=== PATIENT | male | born 1945 | race Caucasian/White ===

== ENCOUNTER 2021-02-09 18:06 | Inpatient (IN) | payer MEDICARE, BC ==
[2021-02-09 18:50] LABS: #Eosinphils 0.1 10x3/uL (0.0-0.5); #Monocytes 0.9 10x3/uL (0.0-1.1); #Neutrophils 13.6 10x3/uL (1.5-8.4); %Basophils 0.3 % (0.0-2.0); %Eosinophils 0.3 % (0.0-6.0); %Lymphocytes 4.9 % (18.0-47.0); %Monocytes 5.8 % (0.0-10.0); %Neutrophils 88.1 % (40.0-75.0); Hemoglobin 14.2 g/dL (13.5-17.5); Mean Corpuscular HGB CONC 34.5 g/dL (32.0-36.0); Mean Corpuscular Hemoglobin 31.7 pg (27.0-33.0); Mean Corpuscular Volume 91.7 fl (81.2-95.1); Mean Platelet Volume 11.5 fl (7.4-10.4); Platelet Count 111 10x3/uL (150-450); RBC Distribution Width 13.2 % (11.5-14.5); Red Blood Cell (RBC) Count 4.48 10x6/uL (4.32-5.72); White Blood Cell (WBC) Count 15.4 10x3/uL (3.5-10.5)
[2021-02-09 19:07] LABS: ALT (SGPT) Less than 6 U/L (8-55); AST (SGOT) 8 U/L (5-34); Albumin 3.1 g/dL (3.4-4.8); Alkaline Phosphatase 65 U/L (40-110); Anion Gap 14 mmol/L (10-20); BUN (Urea Nitrogen) 21 mg/dL (8.4-25.7); Bilirubin, Total 1.7 mg/dL (0.2-1.2); Calc. Creatinine Clearance 0 mL/min (70-130); Carbon Dioxide 16 mmol/L (23-31); Chloride 110 mmol/L (98-107); Globulin 2.2 g/dL (2.4-3.5); Glucose 179 mg/dL (83-110); Magnesium 1.4 mg/dL (1.6-2.6); Potassium 3.6 mmol/L (3.5-5.1); Protein, Total 5.3 g/dL (5.8-8.1); Sodium 136 mmol/L (136-145)
[2021-02-09 19:16] LABS: CKMB 1.1 ng/mL (0-6.6)
[2021-02-09 19:22] LABS: Lipase Less than 4 U/L (8-78)
[2021-02-09] MEDS ORDERED: Magnesium 2 GM/50 ML BAG (IN WATER) ONE (19:22)
[2021-02-09 19:59] LABS: Bilirubin 1+ (Negative); Blood, Urine 250 (Negative); Clarity Cloudy (Clear); Glucose, Urine (Dipstick) Normal (Negative); Ketone, Urine 5 mg/dL (Negative); Leukocyte 500 (Negative); Nitrite Negative (Negative); Protein, Urine (Dipstick) 100 mg/dl (Neg-Trace); Specific Gravity, Urine 1.025 (1.002-1.036)
[2021-02-09 20:00] LABS: RBC/HPF 21-50 HPF (0-3); Squamous Epithelial 0-3 HPF (0-3); WBC/HPF 21-50 HPF (0-3)
[2021-02-09 20:01] LABS: Bacteria/HPF 2+ HPF (None Seen); Renal Epithelial 0-3 HPF (None Seen); Transitional Epithelial 0-3 HPF (None Seen)
[2021-02-09] MEDS ORDERED: cefTRIAXone\\ROCEPHIN 2 GM VIAL ONE (20:24)
[2021-02-09] MEDS ORDERED: HumaLOG 300 UNITS/3 ML VIAL SC PRN (20:38)
[2021-02-09] MEDS ORDERED: Dextrose 50% Abboject 50 ML SYRINGE SLOW IVP PRN (20:38)
[2021-02-09] MEDS ORDERED: Calcium Carbonate 500 MG ChewTAB PO PRN (20:38)
[2021-02-09] MEDS ORDERED: Dextrose 5% in Water 1,000 ML IV PRN (20:38)
[2021-02-09] MEDS ORDERED: Ondansetron PF 4 MG/2 ML Vial IVP PRN (20:38)
[2021-02-09] MEDS ORDERED: Senokot S 8.6-50 MG TAB PO PRN (20:38)
[2021-02-09] MEDS ORDERED: Lactated Ringer's 1,000 ML IV SCH (20:45)
[2021-02-09] MEDS ORDERED: CARBIDOPA PO SCH (21:00)
[2021-02-09] MEDS ORDERED: [UNRECOGNIZED DRUG - OTHER] PO SCH (21:00)
[2021-02-09] MEDS ORDERED: LEVODOPA PO SCH (21:00)
[2021-02-09 21:04] LABS: SARS-CoV-2 NAA Rapid Test Not Detected (NotDetected)
[2021-02-09] MEDS ORDERED: Meropenem 1 GM in Sodium Chloride 0.9% 100 ML IVPB SCH (22:45)
[2021-02-09] MEDS ORDERED: PIMAVANSERIN PO SCH (23:30)
[2021-02-10] MEDS ORDERED: Atorvastatin Calcium 10 MG TAB PO SCH (00:15)
[2021-02-10] MEDS: Propranolol HCl 20 MG TAB PO SCH ×3 (01:46→20:53)
[2021-02-10 02:42] VITALS: BMI 34.4
[2021-02-10] MEDS ORDERED: FLU VACC QS2021-22(65YR UP)/PF 240 MCG/0.7 ML SYRINGE IM ONE (03:15)
[2021-02-10 04:26] LABS: #Eosinphils 0.1 10x3/uL (0.0-0.5); #Monocytes 0.5 10x3/uL (0.0-1.1); #Neutrophils 13.4 10x3/uL (1.5-8.4); %Basophils 0.2 % (0.0-2.0); %Eosinophils 0.9 % (0.0-6.0); %Lymphocytes 3.9 % (18.0-47.0); %Neutrophils 90.9 % (40.0-75.0); Hemoglobin 13.4 g/dL (13.5-17.5); Mean Corpuscular HGB CONC 33.8 g/dL (32.0-36.0); Mean Corpuscular Hemoglobin 31.5 pg (27.0-33.0); Mean Corpuscular Volume 93.2 fl (81.2-95.1); Mean Platelet Volume 11.1 fl (7.4-10.4); Platelet Count 110 10x3/uL (150-450); RBC Distribution Width 13.2 % (11.5-14.5); Red Blood Cell (RBC) Count 4.25 10x6/uL (4.32-5.72); White Blood Cell (WBC) Count 14.8 10x3/uL (3.5-10.5)
[2021-02-10 05:00] LABS: CKMB 2.1 ng/mL (0-6.6)
[2021-02-10 05:10] LABS: Anion Gap 13 mmol/L (10-20); BUN (Urea Nitrogen) 23 mg/dL (8.4-25.7); Calc. Creatinine Clearance 50 mL/min (70-130); Calcium 8.9 mg/dL (7.8-10.44); Carbon Dioxide 23 mmol/L (23-31); Chloride 103 mmol/L (98-107); Glucose 150 mg/dL (83-110); Magnesium 2.1 mg/dL (1.6-2.6); Sodium 135 mmol/L (136-145)
[2021-02-10] MEDS: Enoxaparin Sodium 40 MG/0.4 ML SYRINGE SC SCH (08:09)
[2021-02-10] MEDS: rOPINIRole HCl 1 MG TAB PO SCH ×3 (08:10→20:54)
[2021-02-10] MEDS: Montelukast Sodium 10 mg Tablet PO SCH (08:11)
[2021-02-10] MEDS: Multivitamin W/ Minerals 1 TAB PO SCH (08:11)
[2021-02-10] MEDS: Tamsulosin HCl 0.4 MG CAP PO SCH (08:11)
[2021-02-10] MEDS: FLUoxetine HCl 10 MG CAP PO SCH (08:11)
[2021-02-10] MEDS: Clopidogrel Bisulfate 75 MG TAB PO SCH (08:12)
[2021-02-10] MEDS: PIMAVANSERIN PO SCH ×2 (08:12→20:00)
[2021-02-10] MEDS: Ventolin HFA Inhaler 60 PUFF INHALER INH SCH ×5 (08:15→19:15)
[2021-02-10 08:50] LABS: Hemoglobin A1c 5.7 % (4.0-6.0)
[2021-02-10] MEDS: Acetaminophen 325 MG TAB PO PRN (18:57)
[2021-02-10] MEDS: Atorvastatin Calcium 10 MG TAB PO SCH (20:54)
[2021-02-10] MEDS: Carbidopa/Levodopa 25-100 mg Tablet PO SCH (20:54)
[2021-02-11 05:32] LABS: Anion Gap 13 mmol/L (10-20); BUN (Urea Nitrogen) 25 mg/dL (8.4-25.7); Calc. Creatinine Clearance 50 mL/min (70-130); Calcium 8.8 mg/dL (7.8-10.44); Carbon Dioxide 21 mmol/L (23-31); Chloride 105 mmol/L (98-107); Glucose 141 mg/dL (83-110); Sodium 135 mmol/L (136-145)
[2021-02-11 06:48] LABS: Hemoglobin 12.7 g/dL (13.5-17.5); Mean Corpuscular HGB CONC 33.4 g/dL (32.0-36.0); Mean Corpuscular Hemoglobin 31.4 pg (27.0-33.0); Mean Corpuscular Volume 93.8 fl (81.2-95.1); Mean Platelet Volume 11.9 fl (7.4-10.4); Platelet Count 95 10x3/uL (150-450); RBC Distribution Width 13.2 % (11.5-14.5); Red Blood Cell (RBC) Count 4.05 10x6/uL (4.32-5.72)
[2021-02-11] MEDS: Ventolin HFA Inhaler 60 PUFF INHALER INH SCH ×4 (07:30→19:50)
[2021-02-11] MEDS: Sodium Chloride 0.9% 1,000 ML IV SCH (09:35)
[2021-02-11] MEDS: FLUoxetine HCl 10 MG CAP PO SCH (09:43)
[2021-02-11] MEDS: rOPINIRole HCl 1 MG TAB PO SCH ×3 (09:43→21:06)
[2021-02-11] MEDS: Multivitamin W/ Minerals 1 TAB PO SCH (09:44)
[2021-02-11] MEDS: Propranolol HCl 20 MG TAB PO SCH ×2 (09:44→22:29)
[2021-02-11] MEDS: Clopidogrel Bisulfate 75 MG TAB PO SCH (09:44)
[2021-02-11] MEDS: Acetaminophen 325 MG TAB PO PRN (09:44)
[2021-02-11] MEDS: PIMAVANSERIN PO SCH ×2 (09:45→21:04)
[2021-02-11] MEDS: Enoxaparin Sodium 40 MG/0.4 ML SYRINGE SC SCH (09:45)
[2021-02-11] MEDS: Montelukast Sodium 10 mg Tablet PO SCH (09:45)
[2021-02-11] MEDS: Tamsulosin HCl 0.4 MG CAP PO SCH (09:45)
[2021-02-11] MEDS: Carbidopa/Levodopa 25-100 mg Tablet PO SCH ×3 (10:30→21:07)
[2021-02-11] MEDS: LEVODOPA PO SCH ×4 (10:53→10:55)
[2021-02-11] MEDS: CARBIDOPA PO SCH ×4 (10:53→10:55)
[2021-02-11] MEDS: [UNRECOGNIZED DRUG - OTHER] PO SCH ×2 (10:53→10:54)
[2021-02-11] MEDS: [UNRECOGNIZED DRUG - OTHER] PO SCH ×2 (10:54→10:55)
[2021-02-11] MEDS: Atorvastatin Calcium 10 MG TAB PO SCH (21:06)
[2021-02-12] MEDS: Sodium Chloride 0.9% 1,000 ML IV SCH (00:37)
[2021-02-12 06:27] LABS: Anion Gap 12 mmol/L (10-20); BUN (Urea Nitrogen) 21 mg/dL (8.4-25.7); Calc. Creatinine Clearance 58 mL/min (70-130); Calcium 8.4 mg/dL (7.8-10.44); Carbon Dioxide 23 mmol/L (23-31); Chloride 107 mmol/L (98-107); Glucose 138 mg/dL (83-110); Sodium 138 mmol/L (136-145)
[2021-02-12] MEDS: Ventolin HFA Inhaler 60 PUFF INHALER INH SCH ×2 (07:00→11:20)
[2021-02-12 08:08] LABS: Hemoglobin 11.5 g/dL (13.5-17.5); Mean Corpuscular HGB CONC 33.5 g/dL (32.0-36.0); Mean Corpuscular Hemoglobin 31.1 pg (27.0-33.0); Mean Corpuscular Volume 92.7 fl (81.2-95.1); Mean Platelet Volume 11.9 fl (7.4-10.4); Platelet Count 85 10x3/uL (150-450); RBC Distribution Width 12.9 % (11.5-14.5); White Blood Cell (WBC) Count 3.8 10x3/uL (3.5-10.5)
[2021-02-12 09:38] LABS: MDiff Complete? YES; Manual Diff?? YES
[2021-02-12] MEDS ORDERED: Enoxaparin Sodium 40 MG/0.4 ML SYRINGE ONE (10:01)
[2021-02-12 10:04] LABS: Band 2 % (5-11); Eosinophils 3 % (0-10); Lymphocytes 17 % (21-51); Monocytes 6 % (0-10); Neutrophil 72 % (42-75)
[2021-02-12 10:07] LABS: Anisocytosis SLIGHT = 6-15 cells (100X) (0-5/hpf); Large Platelets SLIGHT; Platelet Morphology Comment Appears Decreased
[2021-02-12] MEDS: PIMAVANSERIN PO SCH (10:24)
[2021-02-12] MEDS: rOPINIRole HCl 1 MG TAB PO SCH (10:26)
[2021-02-12] MEDS: Montelukast Sodium 10 mg Tablet PO SCH (10:27)
[2021-02-12] MEDS: FLUoxetine HCl 10 MG CAP PO SCH (10:28)
[2021-02-12] MEDS: Clopidogrel Bisulfate 75 MG TAB PO SCH (10:29)
[2021-02-12] MEDS: Multivitamin W/ Minerals 1 TAB PO SCH (10:29)
[2021-02-12] MEDS: Tamsulosin HCl 0.4 MG CAP PO SCH (10:30)
[2021-02-12] MEDS ORDERED: hydrALAZINE 25 MG TAB PO SCH ×2 (10:30→15:00)
[2021-02-12] MEDS: Propranolol HCl 20 MG TAB PO SCH (10:36)
[2021-02-12] MEDS: Enoxaparin Sodium 40 MG/0.4 ML SYRINGE SC SCH (10:59)
[2021-02-12] MEDS: Carbidopa/Levodopa 25-100 mg Tablet PO SCH (11:00)
[2021-02-12 12:08] VITALS: BP 165/65; TEMP 97.8
[2021-02-13 08:04] LABS: #Eosinphils 0.1 10x3/uL (0.0-0.5); #Monocytes 0.5 10x3/uL (0.0-1.1); #Neutrophils 6.1 10x3/uL (1.5-8.4); %Basophils 0.4 % (0.0-2.0); %Eosinophils 0.8 % (0.0-6.0); %Lymphocytes 5.2 % (18.0-47.0); %Monocytes 7.2 % (0.0-10.0); %Neutrophils 85.8 % (40.0-75.0)
== END 2021-02-12 15:00 | disposition home or self-care (01) | DRG 871 ==
LOC: CSHERS 18:06 → CSHTELE 21:18
PROVIDERS: ADMIT Student in an Organized Health Care Education/Training Program; ATTEND Internal Medicine
DX: A41.51 Sepsis due to Escherichia coli [E. coli] (principal); G93.41 Metabolic encephalopathy; N17.9 Acute kidney failure, unspecified; N39.0 Urinary tract infection, site not specified; E87.2 Acidosis; Z20.822 Contact with and (suspected) exposure to COVID-19; E78.5 Hyperlipidemia, unspecified; I25.10 Atherosclerotic heart disease of native coronary artery without angina pectoris; N40.0 Benign prostatic hyperplasia without lower urinary tract symptoms; J45.909 Unspecified asthma, uncomplicated; F41.9 Anxiety disorder, unspecified; F32.A Depression, unspecified; G20 Parkinson's disease; I12.9 Hypertensive chronic kidney disease with stage 1 through stage 4 chronic kidney disease, or unspecified chronic kidney disease; R73.9 Hyperglycemia, unspecified; F02.80 Dementia in other diseases classified elsewhere, unspecified severity, without behavioral disturbance, psychotic disturbance, mood disturbance, and anxiety; N18.31 Chronic kidney disease, stage 3a; E83.42 Hypomagnesemia; Z88.5 Allergy status to narcotic agent; Z88.8 Allergy status to other drugs, medicaments and biological substances; Z79.82 Long term (current) use of aspirin; Z79.899 Other long term (current) drug therapy; Z95.1 Presence of aortocoronary bypass graft; Z95.5 Presence of coronary angioplasty implant and graft; Z86.73 Personal history of transient ischemic attack (TIA), and cerebral infarction without residual deficits; Z98.890 Other specified postprocedural states; Z89.429 Acquired absence of other toe(s), unspecified side
CPT/HCPCS: 36415; 36416; 70450; 71045; 80048; 80053; 81003; 81015; 82140; 82553; 83036; 83605; 83690; 83735; 84145; 84443; 84484; 85025; 85060; 87040; 87077; 87086; 87149; 87186; 93005; 94664; 94760; J0696; J1650; J1956; J2185; J3475; J3490; J7050; J7120; U0002

== ENCOUNTER 2021-02-25 13:39 | Emergency (ER) | payer MEDICARE, BC ==
[2021-02-25 15:16] LABS: #Eosinphils 0.2 10x3/uL (0.0-0.5); #Monocytes 0.6 10x3/uL (0.0-1.1); #Neutrophils 7.4 10x3/uL (1.5-8.4); %Basophils 0.4 % (0.0-2.0); %Eosinophils 2.5 % (0.0-6.0); %Lymphocytes 9.3 % (18.0-47.0); %Monocytes 6.1 % (0.0-10.0); %Neutrophils 81.1 % (40.0-75.0); Hemoglobin 12.5 g/dL (13.5-17.5); Mean Corpuscular HGB CONC 33.2 g/dL (32.0-36.0); Mean Corpuscular Hemoglobin 31.2 pg (27.0-33.0); Mean Corpuscular Volume 93.8 fl (81.2-95.1); Mean Platelet Volume 11.2 fl (7.4-10.4); Platelet Count 151 10x3/uL (150-450); RBC Distribution Width 13.4 % (11.5-14.5); Red Blood Cell (RBC) Count 4.01 10x6/uL (4.32-5.72); White Blood Cell (WBC) Count 9.1 10x3/uL (3.5-10.5)
[2021-02-25 15:44] LABS: ALT (SGPT) Less than 6 U/L (8-55); AST (SGOT) 14 U/L (5-34); Albumin 3.7 g/dL (3.4-4.8); Alkaline Phosphatase 70 U/L (40-110); Anion Gap 11 mmol/L (10-20); BUN (Urea Nitrogen) 22 mg/dL (8.4-25.7); Bilirubin, Total 1.7 mg/dL (0.2-1.2); Calc. Creatinine Clearance 0 mL/min (70-130); Calcium 8.6 mg/dL (7.8-10.44); Carbon Dioxide 25 mmol/L (23-31); Chloride 103 mmol/L (98-107); Globulin 2.9 g/dL (2.4-3.5); Glucose 178 mg/dL (83-110); Magnesium 2.2 mg/dL (1.6-2.6); Potassium 4.4 mmol/L (3.5-5.1); Protein, Total 6.6 g/dL (5.8-8.1); Sodium 135 mmol/L (136-145)
[2021-02-25 15:48] LABS: Bilirubin Neg (Negative); Blood, Urine 10 (Negative); Clarity Slightly Cloudy (Clear); Glucose, Urine (Dipstick) Normal (Negative); Ketone, Urine 5 mg/dL (Negative); Leukocyte 25 (Negative); Nitrite Negative (Negative); Protein, Urine (Dipstick) 30 mg/dl (Neg-Trace); Urobilinogen Normal mg/dL (Less than 2)
[2021-02-25 16:02] LABS: RBC/HPF 0-3 HPF (0-3); Renal Epithelial 0-3 HPF (None Seen); Squamous Epithelial 0-3 HPF (0-3); WBC/HPF 0-3 HPF (0-3)
[2021-02-25 16:03] LABS: Bacteria/HPF None Seen HPF (None Seen); Mucous/LPF Rare LPF (<2+)
[2021-02-25] MEDS ORDERED: cefTRIAXone\\ROCEPHIN 2 GM VIAL ONE (16:43)
== END 2021-02-25 20:35 ==
LOC: CSHERS 13:39
DX: S32.031A Stable burst fracture of third lumbar vertebra, initial encounter for closed fracture (principal); N39.0 Urinary tract infection, site not specified; I10 Essential (primary) hypertension; E78.00 Pure hypercholesterolemia, unspecified; G47.30 Sleep apnea, unspecified; I25.10 Atherosclerotic heart disease of native coronary artery without angina pectoris; Z79.899 Other long term (current) drug therapy; W19.XXXA Unspecified fall, initial encounter
CPT/HCPCS: 51701; 70450; 71045; 72125; 72131; 80053; 81003; 81015; 83735; 84484; 85025; 87086; 93005; 96365; J0696